=== PATIENT | female | born 1970 | race Caucasian/White ===

== ENCOUNTER 2016-06-17 20:19 | Inpatient (IN) ==
[2016-06-17] MEDS ORDERED: Naloxone 0.4 MG/ML INJ IVP PRN (23:11)
[2016-06-17] MEDS ORDERED: 0.9 % Sodium Chloride 1,000 ML ONE (23:30)
--- NOTE | 2016-06-17 23:31 | Internal Med History&Physical ---
Date of Encounter: 06/17/16 Time of Encounter: 23:18 Assessment and Plan (1) Acute on chronic renal failure Current visit: Yes Status: Acute Positive acute worsening versus progressive deterioration of renal function. Suspect likely secondary to losartan/HCTZ. Hold losartan/HCTZ. Start her on intravenous fluid resuscitation. Nephrology consultation (2) Orthostatic hypotension Current visit: Yes Status: Acute Start IV fluids. Monitor orthostatic vitals. Fall precautions. (3) Hypertension Current visit: Yes Status: Chronic Patient is hypotensive now. Hold losartan/HCTZ. Qualifiers: Hypertension type: essential hypertension Qualified Code(s): I10 - Essential (primary) hypertension (4) GERD (gastroesophageal reflux disease) Current visit: Yes Status: Chronic Continue PPI Qualifiers: Esophagitis presence: esophagitis presence not specified Qualified Code(s) : K21.9 - Gastro-esophageal reflux disease without esophagitis (5) DVT prophylaxis Current visit: Yes Status: Acute Subcutaneous heparin Internal Medicine - H&P: HPI Chief complaint: Eelvated creatinine Admitted From: Hospital to Hospital Transfer Plans for Post Hospital Care: Home History of present illness: Ms. 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 She follows with nephologist Dr Paul and her prior creatinine was 1.76 on 02/18/2016 and 2.15 on 05/20/2016. She presented to the emergency department at [facility] for hypotension. Apparently had blood pressure at home yesterday was 91/62 (usual BP: 130/90). She skipped antihypertensive medications this morning. Her blood pressure today at work was 80/66. She felt dizzy on standing up, felt thirsty despite taking fluids. She was good urine output. Denies dysuria, hematuria, d diarrhea , abdominal pain, chest pain, shortness of breath, fever, chills, nausea, vomiting. She denies any changes to diet or medications. She was evaluated in the emergency department at [facility] and was noted to have creatinine of 3.01. He has been discussed with nutritional services host Dr. Smith, who recommended admission to [facility]. Lab results from [facility]: BUN 37, creatinine 2.01, calcium 9.1, serum sodium 141, potassium 4, bicarbonate 25.9, magnesium 2.1, troponin less than 0.017, albumin 2.7, total bilirubin 0.28, AST 17, AST 14, alkaline phosphatase 135, INR 1.0, WBC 9.5, hemoglobin 12.7, hematocrit 37.1, platelets 218. Urinalysis is negative for leukocyte esterase and nitrites. Pt had positive orthostatic vitals, with increasing heart rate. Past Med Surg Social Fam HX - Past Medical History Medical history: hypertension Psychiatric history: no psych history - Past Surgical History Surgical History: , cholecystectomy - Social History Smoking Status: Never smoker Smokeless Tobacco Status: No Alcohol use: none Drug use: none - Family History Mother Living Status: Still Living Hx Family Cardiac Disorders: Yes Father Living Status: Still Living Hx Family Cardiac Disorders: Yes Internal Medicine - H&P: Meds Cholecalciferol (Vitamin D3) [Vitamin D3] 5,000 unit PO DAILY 06/17/16 [History] Estradiol 0.5 mg PO DAILY 06/17/16 [History] Lansoprazole [Prevacid] 30 mg PO DAILY 06/17/16 [History] Losartan/HCTZ [Hyzaar 50-12.5 Tablet] 1 each PO DAILY 06/17/16 [History] Allergies No Known Allergies Allergy (Verified 06/17/16 22:54) All Systems PM: A 10-system review of systems was performed and is negative for pertinent findings except as documented above in the HPI. - Constitutional Vitals: Temp Pulse Resp BP Pulse Ox 97.8 F 85 16 114/79 96 06/17/16 22:18 06/17/16 22:18 06/17/16 22:18 06/17/16 22:18 06/17/16 22:18 Exam: General: Not in acute distress at the time of my evaluation HEENT: Oral mucosa is moist. No conjunctival palor or scleral icterus Neck: No obvious neck swellings Lungs: Clear to auscultation Cardiac: Regular rate and rhythm. No significant murmurs Abdomen: Soft, non tender. Bowel sounds present Genitourinary: No rankin catheter Neurological: Alert and oriented. No gross localizing deficits Psych: Not aggressive or agitated Extremities: no significant leg edema Skin: No generalized rash Internal Med - H&P Results - EKG Data -: EKG Interpreted by Myself EKG shows normal: sinus rhythm Rate: normal - Impressions Chest x-ray result from [facility]: No acute radiographic findings
[2016-06-18] MEDS: *HR* Heparin 5,000 UNIT/ML VIAL SQ SCH ×3 (00:07→16:15)
[2016-06-18] MEDS: 0.9 % Sodium Chloride 1,000 ML IVC SCH ×3 (00:09→20:10)
[2016-06-18] MEDS: Acetaminophen 325 MG TABLET PO PRN ×2 (01:57→16:15)
[2016-06-18 06:00] LABS: Hematocrit 32.5 % (35.3-44.9); Mean Corpuscular HGB Conc 33.8 g/dL (31.6-35.5); Mean Corpuscular Hemoglobin 30.1 pg (28.0-33.3); Mean Corpuscular Volume 88.8 fL (83.0-100.0); Mean Platelet Volume 10.3 fL (9.4-12.4); Platelet Count 193 K/mcL (140-400); Red Blood Count 3.66 M/mcL (3.82-4.97); Red Cell Distribution Width 12.5 % (11.5-14.5)
[2016-06-18 06:24] LABS: Calcium 8.7 mg/dL (8.6-10.8); Phosphorous 3.3 mg/dL (2.3-4.7); Potassium 4.3 mEq/L (3.5-4.5)
[2016-06-18] MEDS: Cholecalciferol (D-3) 1,000 UNIT TABLET PO SCH (09:48)
--- NOTE | 2016-06-18 12:06 | Internal Med Progress Note ---
Date of Encounter: 06/18/16 Time of Encounter: 12:04 - Assessment and plan (1) Acute on chronic renal failure Current Visit: Yes Status: Acute Assessment and plan: Baseline serum creatinine noted to be around 1.7, noted to be worsening up to 2.4 this morning. Continue IV hydration, likely related to dehydration and hypotension in the setting of diuretics/ARB at home, which are currently held. Monitor serum creatinine closely. Nephrology consulted, will follow-up recommendations. Renal ultrasound from November 2015 showed no acute abnormality. Avoid nephrotoxins. (2) Orthostatic hypotension Current Visit: Yes Status: Acute Assessment and plan: Patient reports dizziness and near syncope along with low blood pressure readings at home, does not exactly qualify the criteria for orthostatic hypotension. Hold hydrochlorothiazide/losartan at this time and continue to monitor blood pressure closely. Currently normotensive with improved her dizziness. Continue IV hydration. (3) Hypertension Current Visit: Yes Status: Chronic Assessment and plan: Hold antihypertensives as above and continue to monitor blood pressure. Qualifiers: Hypertension type: essential hypertension Qualified Code(s): I10 - Essential (primary) hypertension (4) GERD (gastroesophageal reflux disease) Current Visit: Yes Status: Chronic Qualifiers: Esophagitis presence: esophagitis presence not specified Qualified Code(s) : K21.9 - Gastro-esophageal reflux disease without esophagitis - Subjective Interval history: Feels better; improved dizziness; no nausea, vomiting, abdominal pain, diarrhea ; no urinary complaints; - Constitutional Vitals: Temp Pulse Resp BP Pulse Ox 97.7 F 82 16 116/80 99 06/18/16 11:16 06/18/16 11:16 06/18/16 11:16 06/18/16 11:16 06/18/16 11:16 General appearance: Present: A&O X 3, answers questions appropriately - Respiratory Respiratory exam: Present: CTAB. Absent: accessory muscle use, rales, rhonchi, wheezes - Cardiovascular Cardiovascular exam: Present: RRR, +S1, +S2. Absent: diastolic murmur, gallop, rubs, systolic murmur - GI/Abdominal GI/Abdominal exam: Present: normal bowel sounds, soft, no peritoneal signs. Absent: distended, tenderness - Neurological Exam Neurological exam: Present: CN II-XII intact, oriented X3, no focal deficits. Absent: pronater drift, facial droop, speech deficit Internal Medicine: Result - Labs CBC & Chem 7: 06/18/16 05:35 06/18/16 05:35 Labs: Short CBC 06/18/16 Range/Units 05:35 WBC 5.9 (4.3-11.1) K/mcL Hgb 11.0 L (11.5-15.4) g/dL Hct 32.5 L (35.3-44.9) % Plt Count 193 (140-400) K/mcL BMP 06/18/16 05:35 Sodium 142 Potassium 4.3 Chloride 113 H Carbon Dioxide 23 BUN 32 H Creatinine 2.42 H Glucose 87 Calcium 8.7 Consult Discharge Plan - Plan Referrals: Able-Lacy Aceves DO [Primary Care Provider] -
[2016-06-18 16:15] LABS: Calcium 8.8 mg/dL (8.6-10.8); Potassium 4.2 mEq/L (3.5-4.5)
--- NOTE | 2016-06-18 16:59 | Nephrology Consult Note ---
Date of Encounter: 06/18/16 Time of Encounter: 16:53 Assessment and Plan (1) Acute on chronic renal failure Current Visit: Yes Status: Acute Patient with acute on chronic renal failure that is secondary to prerenal azotemia from hypotension. Her renal function is improving with holding her antihypertensive medications and administering intravenous fluids. At this time I anticipate recovery of her renal function back to baseline. She has no clinical need for renal replacement therapy. She reports that she has an appointment with Dr. Paul tomorrow. I recommend continuing to hold her antihypertensive medications and continuing with intravenous fluids. (2) Hypertension Current Visit: Yes Status: Chronic Patient has a history of hypertension. She reports that HCTZ was added to her regimen in February. She also reports that she has lost 5-7 pounds since February. It is likely that the new medication and simultaneous weight loss resulted in over correction of her blood pressure. She states that she normally does not check her blood pressure at home. I recommend holding both her losartan and HCTZ. She is scheduled to follow-up with Dr. Paul tomorrow and he can plan when to resume antihypertensive medication. Agree with intravenous hydration. Plan was communicated with Dr. Aggarwal. Qualifiers: Hypertension type: essential hypertension Qualified Code(s): I10 - Essential (primary) hypertension History of Present Illness - Reason for Consult Consult date: 06/18/16 Acute Kidney Injury, Chronic Kidney Disease - Chief Complaint JEANETTE on CKD - History of Present Illness Mrs. Sim is a 46 yo woman with a history of CKD Stage [address] Paul who presents with presyncope and hypotension. Patient reports she had severe allergies last week, but denies nausea, vomiting, diarrhea or decreased appetitie. She noticed her blood pressure decreased slightly prior to going to work, and while at work noticed that she had some lightheadedness and found her sbp was in the 80s. She went to [facility] where she was found to have a creatinine of 3.1. She was subsequently transferred for further evaluation. Past Med Surg Social Fam HX - Past Medical History Medical history: hypertension Psychiatric history: no psych history - Past Surgical History Surgical History: , cholecystectomy - Social History Smoking Status: Never smoker Smokeless Tobacco Status: No Alcohol use: none Drug use: none - Family History Mother Living Status: Still Living Hx Family Cardiac Disorders: Yes Father Living Status: Still Living Hx Family Cardiac Disorders: Yes Medications and Allergies Cholecalciferol (Vitamin D3) [Vitamin D3] 5,000 unit PO DAILY 06/17/16 [History] Estradiol 0.5 mg PO DAILY 06/17/16 [History] Lansoprazole [Prevacid] 30 mg PO DAILY 06/17/16 [History] Losartan/HCTZ [Hyzaar 50-12.5 Tablet] 1 tab PO DAILY 06/17/16 [History] Allergies No Known Allergies Allergy (Verified 06/17/16 22:54) Review of Systems All Systems: reviewed and no additional remarkable complaints except as stated ( as documented in the HPI.) Exam - Vital Signs Vital signs: Initial Vital Signs Temp Pulse Resp BP Pulse Ox 97.8 F 85 16 114/79 96 06/17/16 22:18 06/17/16 22:18 06/17/16 22:18 06/17/16 22:18 06/17/16 22:18 Vital Signs - Last 8 Hours Temp Pulse Resp BP Pulse Ox 06/18/16 14:53 98.0 F 72 15 124/84 96 06/18/16 11:16 97.7 F 82 16 116/80 99 Intake and Output 06/18/16 06/18/16 06/18/16 07:59 15:59 23:59 Intake Total 800 / 800 1240 / 1240 Balance 800 / 800 1240 / 1240 Intake: IV Fluids 1000 / 1000 0.9 % Sodium Chloride 1, 1000 / 1000 000 ML @ 100 mls/hr IVC . Q10H [facility] Rx#:[id number] Oral 800 / 800 240 / 240 Other: Meal water pitcher filled Breakfast Percent of Meal Consumed 100% Weight 67.989 kg Patient Weight 06/18/16 23:59 Weight 67.989 kg - General Appearance General appearance: well-developed, well-nourished EENT: ATNC Neck: supple Respiratory: clear Cardiology: regular rate, regular rhythm Gastrointestinal: normoactive bowel sounds, no tenderness Integumentary: warm and dry Neurologic: alert and oriented x3 Musculoskeletal: no cyanosis Psychiatric: mood/affect appropriate Results - Lab Results 06/18/16 05:35 06/18/16 15:51 Most recent lab results Calcium 8.8 mg/dL (8.6-10.8) 06/18/16 15:51 Phosphorus 3.3 mg/dL (2.3-4.7) 06/18/16 05:35 Consult Discharge Plan - Plan Referrals: Lacy Timmons DO [Primary Care Provider] -
[2016-06-19] MEDS: *HR* Heparin 5,000 UNIT/ML VIAL SQ SCH ×2 (00:59→09:03)
[2016-06-19 04:50] LABS: Calcium 8.7 mg/dL (8.6-10.8); Potassium 4.4 mEq/L (3.5-4.5)
[2016-06-19] MEDS: 0.9 % Sodium Chloride 1,000 ML IVC SCH (06:34)
[2016-06-19 07:00] VITALS: BP 115/79
[2016-06-19] MEDS: Cholecalciferol (D-3) 1,000 UNIT TABLET PO SCH (09:01)
--- NOTE | 2016-06-19 10:01 | Nephrology Progress Note ---
Date of Encounter: 06/19/16 Time of Encounter: 09:58 - Assessment and Plan (1) Acute on chronic renal failure Current Visit: Yes Status: Acute Kidney function improving Had appointment with Dr Paul at 9:00am but was not discharged early enough to go to appointment. Appointment rescheduled for ThursdayJune 30 per patient. BMP 1 week after hospital discharge (2) Hypertension Current Visit: Yes Status: Chronic per primary team Qualifiers: Hypertension type: essential hypertension Qualified Code(s): I10 - Essential (primary) hypertension Subjective Principal diagnosis: hypotension, CKD stage 3 Interval history: Patient seen and examined. Doing well today Objective - Vital Signs Vital signs: Vital Signs Temp Pulse Resp BP Pulse Ox 06/19/16 06:59 98.0 F 69 14 115/79 96 06/19/16 03:47 97.7 F 73 16 123/84 95 06/18/16 23:07 97.9 F 72 16 124/80 95 06/18/16 20:00 97 06/18/16 19:19 97.9 F 78 16 115/78 97 06/18/16 14:53 98.0 F 72 15 124/84 96 06/18/16 11:16 97.7 F 82 16 116/80 99 Intake and Output 06/18/16 06/19/16 06/19/16 23:59 07:59 15:59 Intake Total 1000 / 1000 1400 / 1400 Output Total 1000 / 1000 Balance 1000 / 1000 400 / 400 Intake: IV Fluids 1000 / 1000 1000 / 1000 0.9 % Sodium Chloride 1, 1000 / 1000 1000 / 1000 000 ML @ 100 mls/hr IVC . Q10H [facility] Rx#:[id number] Oral 400 / 400 Output: Urine 1000 / 1000 Other: Weight 69.127 kg Patient Weight 06/19/16 23:59 Weight 69.127 kg - General Appearance General appearance: Present: well-developed, well-nourished EENT: Present: ATNC, mucous membranes moist, hearing intact, vision intact Neck: Present: supple Respiratory: Present: clear Cardiology: Present: no edema, normal S1, normal S2 Gastrointestinal: Present: no tenderness, no guarding Integumentary: Present: warm and dry Neurologic: Present: no focal deficit, alert and oriented x3 Musculoskeletal: Present: no deformities, no erythema Psychiatric: Present: mood/affect appropriate, cooperative - Lab 06/18/16 05:35 06/19/16 03:38 Most recent lab results Calcium 8.7 mg/dL (8.6-10.8) 06/19/16 03:38 Phosphorus 3.3 mg/dL (2.3-4.7) 06/18/16 05:35 Consult Discharge Plan - Plan Referrals: Lacy Timmons DO [Primary Care Provider] -
--- NOTE | 2016-06-19 11:08 | Discharge Summary ---
Date of Encounter: 06/19/16 Time of Encounter: 11:06 - Discharge Diagnosis (1) Acute on chronic renal failure Priority: Primary Status: Acute (2) Orthostatic hypotension Priority: Primary Status: Acute (3) Hypertension Priority: Secondary Status: Chronic Qualifiers: Hypertension type: essential hypertension Qualified Code(s): I10 - Essential (primary) hypertension (4) GERD (gastroesophageal reflux disease) Priority: Secondary Status: Chronic Qualifiers: Esophagitis presence: esophagitis presence not specified Qualified Code(s) : K21.9 - Gastro-esophageal reflux disease without esophagitis - Discharge Medications Home Medications: Cholecalciferol (Vitamin D3) [Vitamin D3] 5,000 unit PO DAILY 06/17/16 [History] Estradiol 0.5 mg PO DAILY 06/17/16 [History] Lansoprazole [Prevacid] 30 mg PO DAILY 06/17/16 [History] Allergies/Adverse Reactions: Allergies No Known Allergies Allergy (Verified 06/17/16 22:54) Date of admission: 06/17/16 23:11 Primary care physician: Lacy Cifuentes Consults: 06/17/16 23:15 Consult to Nephrology [CONS] Routine Consulting Provider: Kidney Sophia/DARIEL/GRADY/NONI Reason for Consult: Acute on chronic renal failure Call Completed: No Discharging clinician: Vikki Aggarwal Anticipated date of discharge: 06/19/16 - Patient Status Disposition: Home, Self-Care Condition: Good Functional capacity at discharge: independent ambulation Overall status at discharge: patient is progressing back to baseline - Discharge Instructions Instructions: Acute Kidney Injury (DC), Renal Failure Diet (DC), Chronic Hypertension (DC) Follow Up With: Frank Paul DO [Partnered Physician] - 06/30/16 11:00 am Nydia Jim MD [Non-Partnered Physician] - 06/24/16 3:15 pm Additional Instructions: F/up with as scheduled - Diet and Activity Activity: resume usual activities as tolerated Diet: low salt diet Hospital course: Ms. Sim is a 46 year old female with history of hypertension and chronic kidney disease was admitted because of low blood pressure readings at home. Patient was noted to have dizziness and hypotension at the time of admission along with worsening of her chronic kidney disease with elevated serum creatinine from her baseline. Antihypertensives were held and patient was started on IV hydration with significant improvement in symptoms, blood pressure and serum creatinine. Nephrology was consulted and agreed with this management. Patient's dosage of blood pressure medications has been increased recently and she also had significant intentional weight loss, which could have contributed to overcorrection of blood pressure and orthostatic hypotension. Patient's serum creatinine is back to baseline at this time and her blood pressure is adequately controlled without any medications. She does have outpatient nephrology follow-up at this time and is advised to continue holding blood pressure medications and monitor blood pressure. - Time Spent with Patient Total time spent providing and/or coordinating discharge services: Greater than 30 minutes (45 min) - Constitutional Vitals: Temp Pulse Resp BP Pulse Ox 98.0 F 69 14 115/79 96 06/19/16 06:59 06/19/16 06:59 06/19/16 06:59 06/19/16 06:59 06/19/16 06:59 General appearance: Present: A&O X 3, answers questions appropriately - Respiratory Respiratory exam: Present: CTAB. Absent: accessory muscle use, rales, rhonchi, wheezes - Cardiovascular Cardiovascular exam: Present: RRR, +S1, +S2. Absent: diastolic murmur, gallop, rubs, systolic murmur
== END 2016-06-19 11:45 | disposition home or self-care (01) | DRG 684 ==
LOC: 3BNU → SUATTDRO 23:11
PROVIDERS: ADMIT Internal Medicine; ATTEND Internal Medicine

== ENCOUNTER 2019-01-17 17:55 | Inpatient (IN) ==
[2019-01-17 18:57] LABS: Hematocrit 37.2 % (35.3-44.9); Hemoglobin 12.6 g/dL (11.5-15.4)
[2019-01-17] MEDS ORDERED: *HR* Heparin 5,000 UNIT/ML VIAL IVP PRN ×2 (19:01)
[2019-01-17] MEDS ORDERED: *HR* Heparin 5,000 UNIT/ML VIAL IVP ONE (19:01)
[2019-01-17 19:18] LABS: Calcium 9.1 mg/dL (8.6-10.3); Potassium 3.6 mEq/L (3.5-5.1)
[2019-01-17 19:27] LABS: Heparin anti-factor XA UFH 0.03 IU/mL (0.30-0.70); Prothrombin Time 11.9 Seconds (9.4-12.1)
[2019-01-17 19:31] LABS: Activated Partial Thrombo Time 30.5 Seconds (26.0-36.0)
[2019-01-17] MEDS: Heparin 25,000 UNIT/250 ML D5W 25,000 UNIT/250 ML IV.SOLN IVC SCH (19:31)
[2019-01-17 20:18] LABS: Basophils # 0.1 K/mcL (0.0-0.2); Basophils % 0.7 %; Eosinophils # 0.5 K/mcL (0.0-0.6); Eosinophils % 5.4 %; Hematocrit 37.1 % (35.3-44.9); Hemoglobin 12.5 g/dL (11.5-15.4); Immature Granulocytes % 0.4 % (0-4); Lymphocytes # 2.4 K/mcL (0.6-4.6); Lymphocytes % 28.5 %; Mean Corpuscular HGB Conc 33.7 g/dL (31.6-35.5); Mean Corpuscular Hemoglobin 30.3 pg (28.0-33.3); Mean Corpuscular Volume 89.8 fL (83.0-100.0); Mean Platelet Volume 10.9 fL (9.4-12.4); Monocytes # 0.7 K/mcL (0.0-1.3); Neutrophils # 4.9 K/mcL (1.6-8.9); Platelet Count 211 K/mcL (140-400); Red Blood Count 4.13 M/mcL (3.82-4.97); Red Cell Distribution Width 13.2 % (11.5-14.5); White Blood Count 8.6 K/mcL (4.3-11.1)
[2019-01-17] MEDS ORDERED: Naloxone 0.4 MG/ML INJ IVP PRN (23:43)
[2019-01-18] MEDS: 0.9 % Sodium Chloride 1,000 ML IVC SCH ×2 (00:04→07:56)
[2019-01-18] MEDS: Acetaminophen 325 MG TABLET PO PRN ×2 (00:04→12:46)
[2019-01-18] MEDS ORDERED: *HR* Warfarin 5 MG TABLET PO ONE ×2 (00:30→18:00)
[2019-01-18 01:41] LABS: Hematocrit 34.4 % (35.3-44.9); Hemoglobin 12.2 g/dL (11.5-15.4); Mean Corpuscular HGB Conc 35.5 g/dL (31.6-35.5); Mean Corpuscular Hemoglobin 31.1 pg (28.0-33.3); Mean Corpuscular Volume 87.8 fL (83.0-100.0); Mean Platelet Volume 10.4 fL (9.4-12.4); Platelet Count 189 K/mcL (140-400); Red Blood Count 3.92 M/mcL (3.82-4.97); Red Cell Distribution Width 13.1 % (11.5-14.5); White Blood Count 9.2 K/mcL (4.3-11.1)
[2019-01-18 01:46] LABS: Prothrombin Time 11.7 Seconds (9.4-12.1)
[2019-01-18 02:02] LABS: Albumin 3.5 g/dL (3.5-5.7); Albumin/Globulin Ratio 1.4 (1.1-2.2); Bilirubin,Total 0.2 mg/dL (0.3-1.0); Calcium 8.6 mg/dL (8.6-10.3); Globulin 2.5 g/dL (2.4-3.5); Magnesium 1.7 mg/dL (1.6-2.6); Potassium 3.9 mEq/L (3.5-5.1)
[2019-01-18] MEDS ORDERED: Furosemide 20 MG TABLET PO PRN (15:16)
[2019-01-18] MEDS ORDERED: Warfarin perPT PO PRN (18:00)
[2019-01-19] MEDS: Heparin 25,000 UNIT/250 ML D5W 25,000 UNIT/250 ML IV.SOLN IVC SCH (00:15)
[2019-01-19 03:01] LABS: Hemoglobin 11.1 g/dL (11.5-15.4); Mean Corpuscular HGB Conc 32.6 g/dL (31.6-35.5); Mean Corpuscular Hemoglobin 30.2 pg (28.0-33.3); Mean Corpuscular Volume 92.4 fL (83.0-100.0); Mean Platelet Volume 10.9 fL (9.4-12.4); Platelet Count 167 K/mcL (140-400); Red Blood Count 3.68 M/mcL (3.82-4.97); Red Cell Distribution Width 13.2 % (11.5-14.5); White Blood Count 7.4 K/mcL (4.3-11.1)
[2019-01-19 03:04] LABS: INR 1.2; Prothrombin Time 13.6 Seconds (9.4-12.1)
[2019-01-19 03:20] LABS: Calcium 8.4 mg/dL (8.6-10.3)
[2019-01-19] MEDS: Cholecalciferol (D-3) 1,000 UNIT (25MCG) TABLET PO SCH (10:10)
[2019-01-19] MEDS: aMILoride 5 MG TABLET PO SCH (10:10)
[2019-01-19] MEDS: Famotidine 20 MG TABLET PO SCH (10:11)
[2019-01-19] MEDS ORDERED: *HR* Warfarin 7.5 MG TABLET PO ONE (18:00)
[2019-01-20 06:09] LABS: Hematocrit 35.2 % (35.3-44.9); Hemoglobin 11.7 g/dL (11.5-15.4); Mean Corpuscular HGB Conc 33.2 g/dL (31.6-35.5); Mean Corpuscular Hemoglobin 30.4 pg (28.0-33.3); Mean Corpuscular Volume 91.4 fL (83.0-100.0); Mean Platelet Volume 10.3 fL (9.4-12.4); Platelet Count 170 K/mcL (140-400); Red Blood Count 3.85 M/mcL (3.82-4.97); Red Cell Distribution Width 13.2 % (11.5-14.5)
[2019-01-20 06:21] LABS: INR 1.8; Prothrombin Time 20.2 Seconds (9.4-12.1)
[2019-01-20 06:27] LABS: Calcium 8.9 mg/dL (8.6-10.3); Potassium 4.1 mEq/L (3.5-5.1)
[2019-01-20] MEDS: Cholecalciferol (D-3) 1,000 UNIT (25MCG) TABLET PO SCH (09:12)
[2019-01-20] MEDS: Famotidine 20 MG TABLET PO SCH (09:12)
[2019-01-20] MEDS: aMILoride 5 MG TABLET PO SCH (09:12)
[2019-01-20] MEDS: Heparin 25,000 UNIT/250 ML D5W 25,000 UNIT/250 ML IV.SOLN IVC SCH (17:31)
[2019-01-20] MEDS ORDERED: *HR* Warfarin 5 MG TABLET PO ONE (18:00)
[2019-01-21] MEDS: Heparin 25,000 UNIT/250 ML D5W 25,000 UNIT/250 ML IV.SOLN IVC SCH (00:11)
[2019-01-21 06:03] LABS: Hematocrit 38.1 % (35.3-44.9); Hemoglobin 12.7 g/dL (11.5-15.4); Mean Corpuscular HGB Conc 33.3 g/dL (31.6-35.5); Mean Corpuscular Hemoglobin 30.3 pg (28.0-33.3); Mean Corpuscular Volume 90.9 fL (83.0-100.0); Mean Platelet Volume 10.4 fL (9.4-12.4); Platelet Count 180 K/mcL (140-400); Red Blood Count 4.19 M/mcL (3.82-4.97); Red Cell Distribution Width 13.2 % (11.5-14.5); White Blood Count 7.7 K/mcL (4.3-11.1)
[2019-01-21 06:13] LABS: Prothrombin Time 33.9 Seconds (9.4-12.1)
[2019-01-21 07:42] VITALS: BP 111/77
[2019-01-21 08:54] LABS: Calcium 8.9 mg/dL (8.6-10.3); Potassium 4.2 mEq/L (3.5-5.1)
[2019-01-21] MEDS: aMILoride 5 MG TABLET PO SCH (09:32)
[2019-01-21] MEDS: Famotidine 20 MG TABLET PO SCH (09:32)
[2019-01-21] MEDS: Cholecalciferol (D-3) 1,000 UNIT (25MCG) TABLET PO SCH (09:32)
[2019-01-21] MEDS ORDERED: *HR* Warfarin 3 MG TABLET PO ONE (18:00)
== END 2019-01-21 11:40 | disposition home or self-care (01) | DRG 300 ==
LOC: 3BNU 17:55 → EMEROOARM 17:55 → 3BNU 21:43
PROVIDERS: ADMIT Internal Medicine; ATTEND Internal Medicine